=== PATIENT | male | born 1990 | race Two or more races ===

== ENCOUNTER 2020-12-04 10:19 | Emergency (ER) | payer SELFPAY ==
[~2020-12-04] VITALS: Ht 172.7 cm; Wt 70.0 kg
[2020-12-04 10:44] LABS: BASO # 0.1 x10^3/uL (0.0-0.2); BASO % 1 % (0-3); EOS % 0 % (0-3); HEMATOCRIT 45.6 % (39.0-53.0); HEMOGLOBIN 15.3 g/dL (13.0-17.5); LYMPH # 3.7 x10^3/uL (1.0-4.8); LYMPH % 37 % (24-48); MEAN CORPUSCULAR HEMOGLOBIN 30 pg (25-35); MEAN CORPUSCULAR HGB CONC 34 g/dL (31-37); MEAN CORPUSCULAR VOLUME 90 fL (79-100); MONO % 10 % (0-9); NEUT # 5.3 x10^3/uL (1.8-7.7); NEUT % 53 % (31-73); PLATELET COUNT 401 x10^3/uL (140-400); RED BLOOD COUNT 5.06 x10^6/uL (4.30-5.70)
[2020-12-04] MEDS: IV NORMAL SALINE 1000ML BAG 1,000 ML IV SCH (10:52)
[2020-12-04] MEDS: ASPIRIN 325 MG TABLET PO ONE (10:52)
[2020-12-04] MEDS: MORPHINE SULFATE 4 MG/ML VIAL. IV/SQ PRN (10:53)
[2020-12-04] MEDS: NITROGLYCERIN SUBLINGUAL 0.4 MG BOTTLE OF 25. SL PRN (10:53)
--- NOTE | 2020-12-04 11:00 | RAD ---
EXAMINATION: XR CHEST 1V CLINICAL HISTORY: Chest pain EXAM DATE/TIME: 12/04/2020 10:32 AM COMPARISON: None FINDINGS: Lines, Tubes, and Devices: None. Cardiomediastinal Silhouette: Within normal limits. Lungs and Pleura: No evidence of focal airspace consolidation or pleural effusion. Bilateral old calc ified granulomas. Pulmonary vasculature unremarkable. Bones and Soft Tissues: No acute osseous abnormality. IMPRESSION: No evidence of acute cardiopulmonary abnormality. Electronically signed by: Inderjit Hare DO (12/04/2020 10:58 AM) [id number]
[2020-12-04 11:10] LABS: ALBUMIN/GLOBULIN RATIO 1.1 (1.0-1.7); CALCIUM 8.8 mg/dL (8.5-10.1); CREATININE 1.3 mg/dL (0.7-1.3); MAGNESIUM 2.3 mg/dL (1.8-2.4); TOTAL BILIRUBIN 0.8 mg/dL (0.2-1.0); TOTAL PROTEIN 7.8 g/dL (6.4-8.2)
[2020-12-04 11:13] LABS: POTASSIUM 2.9 mmol/L (3.5-5.1)
--- NOTE | 2020-12-04 12:00 | EKG ---
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
[2020-12-04] MEDS: POTASSIUM CHLORIDE 20 MEQ TABLET.ER. PO ONE ×2 (12:06→13:00)
[2020-12-04] MEDS: IV NORMAL SALINE 1000ML BAG 1,000 ML IV ONE (12:07)
[2020-12-04 12:40] LABS: BILIRUBIN,URINE NEGATIVE (NEG); CLARITY,URINE CLEAR; COLOR,URINE YELLOW; NITRITE,URINE NEGATIVE (NEG); PROTEIN,URINE 30 mg/dL (NEG-TRACE)
[2020-12-04 12:51] LABS: AMPHETAMINE/METHAMPHETAMINE POS (NEG); BARBITURATES NEG (NEG); BENZODIAZEPINES NEG (NEG); CANNABINOIDS NEG (NEG); COCAINE NEG (NEG); METHADONE NEG (NEG); OPIATES POS (NEG); PHENCYCLIDINE NEG (NEG)
[2020-12-04 12:52] LABS: HYALINE CASTS, URINE MODERATE /HPF
[2020-12-04 12:53] LABS: BACTERIA,URINE 0 /HPF (0-FEW); RBC,URINE OCC /HPF (0-2); SPERM,URINE PRESENT /HPF
[2020-12-04 15:42] VITALS: BP 135/91
--- NOTE | 2020-12-04 16:09 | PHYS DOC ---
Past Medical History Past Medical History: Hypertension Past Surgical History: No Surgical History Smoking Status: Never Smoker Alcohol Use: None General Adult EDM: Chief Complaint: CHEST PAIN HPI: HPI: Patient is a 30 year old male with history of hypertension who presents to the ED today complaining of a 10 out of 10 left-sided chest pain described as sharp and constant, symptoms began at 9 AM while he was resting at home. Patient denies anything specifically exacerbating or relieving the pain. He is very anxious thrashing himself around the bed. History hard to obtain at this point. Patient is Kazakh-speaking, initial interpretation was provided by one of the hospital employees from radiology department. That around the language line was used Review of Systems: Review of Systems: Constitutional: Denies fever or chills. [] Eyes: Denies change in visual acuity. [] HENT: Denies nasal congestion or sore throat. [] Respiratory: Denies cough or shortness of breath. [] Cardiovascular: Reports left-sided chest pain GI: Denies abdominal pain, nausea, vomiting, bloody stools or diarrhea. [] : Denies dysuria. [] Musculoskeletal: Denies back pain or joint pain. [] Integument: Denies rash. [] Neurologic: Denies headache, focal weakness or sensory changes. [] Psychiatric: Denies depression or anxiety. [] Heart Score: C/O Chest Pain: Yes HEART Score for Chest Pain: HEART Score for Chest Pain Response (Comments) Value History Slighlty/Non-Suspicious 0 ECG Normal 0 Age < 45 0 Risk Factors 1 or 2 Risk Factors 1 Troponin < Normal Limit 0 Total 1 Risk Factors: Risk Factors: DM, Current or recent (<one month) smoker, HTN, HLP, family history of CAD, obesity. Risk Scores: Score 0 - 3: 2.5% MACE over next 6 weeks - Discharge Home Score 4 - 6: 20.3% MACE over next 6 weeks - Admit for Clinical Observation Score 7 - 10: 72.7% MACE over next 6 weeks - Early Invasive Strategies Current Medications: Current Medications Medications (Trade) Dose Ordered Sig/Bernie Start Time Stop Time Status Last Admin Dose Admin Aspirin (Snow Aspirin) 325 mg 1X ONCE 12/04/20 10:30 12/04/20 10:34 DC 12/04/20 10:52 325 MG Lorazepam (Ativan Inj) 1 mg 1X ONCE 12/04/20 13:00 12/04/20 13:02 DC 12/04/20 13:42 1 MG Morphine Sulfate (Morphine Sulfate) 4 mg PRN Q15MIN PRN 12/04/20 10:30 12/05/20 10:29 12/04/20 10:53 4 MG Nitroglycerin (Nitrostat) 0.4 mg PRN Q5MIN PRN 12/04/20 10:30 12/05/20 10:29 12/04/20 10:53 0.4 MG Potassium Chloride (Klor-Con) 40 meq 1X ONCE 12/04/20 13:00 12/04/20 13:02 DC Sodium Chloride 1,000 ml @ 1,000 mls/hr 1X ONCE 12/04/20 12:00 12/04/20 12:59 DC 12/04/20 12:07 1,000 MLS/HR Allergies: Allergies: Allergies Coded Allergies Type Severity Reaction Last Updated Verified No Known Drug Allergies 12/04/20 No Physical Exam: PE: Constitutional: Well developed, well nourished, no acute distress, non-toxic appearance. [] HENT: Normocephalic, atraumatic, bilateral external ears normal, oropharynx moist, no oral exudates, nose normal. [] Eyes: PERRLA, EOMI, conjunctiva normal, no discharge. [] Neck: Normal range of motion, no tenderness, supple, no stridor. [] Cardiovascular:Heart rate regular rhythm, no murmur [] Lungs & Thorax: Bilateral breath sounds clear to auscultation [] Abdomen: Bowel sounds normal, soft, no tenderness, no masses, no pulsatile masses. [] Skin: Warm, dry, no erythema, no rash. [] Back: No tenderness, no CVA tenderness. [] Extremities: No tenderness, no cyanosis, no clubbing, ROM intact, no edema. [] Neurologic: Alert and oriented X 3, normal motor function, normal sensory function, no focal deficits noted. [] Psychologic: Anxious, thrashing around the bed Current Patient Data: Labs: Laboratory Tests Test 12/04/20 10:23 12/04/20 12:10 12/04/20 14:42 White Blood Count 10.0 x10^3/uL (4.0-11.0) Red Blood Count 5.06 x10^6/uL (4.30-5.70) Hemoglobin 15.3 g/dL (13.0-17.5) Hematocrit 45.6 % (39.0-53.0) Mean Corpuscular Volume 90 fL (79-100) Mean Corpuscular Hemoglobin 30 pg (25-35) Mean Corpuscular Hemoglobin Concent 34 g/dL (31-37) Red Cell Distribution Width 14.0 % (11.5-14.5) Platelet Count 401 x10^3/uL (140-400) H Neutrophils (%) (Auto) 53 % (31-73) Lymphocytes (%) (Auto) 37 % (24-48) Monocytes (%) (Auto) 10 % (0-9) H Eosinophils (%) (Auto) 0 % (0-3) Basophils (%) (Auto) 1 % (0-3) Neutrophils # (Auto) 5.3 x10^3/uL (1.8-7.7) Lymphocytes # (Auto) 3.7 x10^3/uL (1.0-4.8) Monocytes # (Auto) 1.0 x10^3/uL (0.0-1.1) Eosinophils # (Auto) 0.0 x10^3/uL (0.0-0.7) Basophils # (Auto) 0.1 x10^3/uL (0.0-0.2) D-Dimer (Sada) 0.31 ug/mlFEU (0.00-0.50) Sodium Level 135 mmol/L (136-145) L Potassium Level 2.9 mmol/L (3.5-5.1) *L Chloride Level 98 mmol/L (98-107) Carbon Dioxide Level 15 mmol/L (21-32) L Anion Gap 22 (6-14) H Blood Urea Nitrogen 7 mg/dL (8-26) L Creatinine 1.3 mg/dL (0.7-1.3) Estimated GFR (Cockcroft-Gault) 64.0 BUN/Creatinine Ratio 5 (6-20) L Glucose Level 215 mg/dL (70-99) H Calcium Level 8.8 mg/dL (8.5-10.1) Magnesium Level 2.3 mg/dL (1.8-2.4) Total Bilirubin 0.8 mg/dL (0.2-1.0) Aspartate Amino Transferase (AST) 34 U/L (15-37) Alanine Aminotransferase (ALT) 48 U/L (16-63) Alkaline Phosphatase 80 U/L (46-116) Troponin I Quantitative < 0.017 ng/mL (0.000-0.055) 0.025 ng/mL (0.000-0.055) HO-Fpn-H-Type Natriuretic Peptide 33 pg/mL (0-124) Total Protein 7.8 g/dL (6.4-8.2) Albumin 4.0 g/dL (3.4-5.0) Albumin/Globulin Ratio 1.1 (1.0-1.7) Thyroid Stimulating Hormone (TSH) 5.279 uIU/mL (0.358-3.74) H Ethyl Alcohol Level < 10 mg/dL (0-10) Urine Collection Type Unknown Urine Color Yellow Urine Clarity Clear Urine pH 7.0 (<5.0-8.0) Urine Specific [place] 1.015 (1.000-1.030) Urine Protein 30 mg/dL (NEG-TRACE) Urine Glucose (UA) 250 mg/dL (NEG) Urine Ketones (Stick) 15 mg/dL (NEG) Urine Blood Negative (NEG) Urine Nitrite Negative (NEG) Urine Bilirubin Negative (NEG) Urine Urobilinogen Dipstick 1.0 mg/dL (0.2 mg/dL) Urine Leukocyte Esterase Negative (NEG) Urine RBC Occ /HPF (0-2) Urine WBC 1-4 /HPF (0-4) Urine Bacteria 0 /HPF (0-FEW) Urine Hyaline Casts Moderate /HPF Urine Mucus Marked /LPF Urine Sperm Present /HPF Urine Opiates Screen Pos (NEG) Urine Methadone Screen Neg (NEG) Urine Barbiturates Neg (NEG) Urine Phencyclidine Screen Neg (NEG) Urine Amphetamine/Methamphetamine Pos (NEG) Urine Benzodiazepines Screen Neg (NEG) Urine Cocaine Screen Neg (NEG) Urine Cannabinoids Screen Neg (NEG) Urine Ethyl Alcohol Pos (NEG) Laboratory Tests 12/04/20 10:23 Laboratory Tests 12/04/20 10:23 Vital Signs: Vital Signs Date Time Temp Pulse Resp B/P (MAP) Pulse Ox O2 Delivery O2 Flow Rate FiO2 12/04/20 12:22 114 141/89 (106) 90 Room Air 12/04/20 10:53 20 12/04/20 10:20 98.2 98.2 EKG: EK interpreted by Dr. Mcwilliams sinus tachycardia heart rate 142 no STEMI Repeat EKG 1221 Interpreted by Oj Quinn Sinus tachycardia heart rate 115 no STEMI Radiology/Procedures: Radiology/Procedures: []PROCEDURE: PORTABLE CHEST 1V EXAMINATION: XR CHEST 1V CLINICAL HISTORY: Chest pain EXAM DATE/TIME: 12/04/2020 10:32 AM COMPARISON: None FINDINGS: Lines, Tubes, and Devices: None. Cardiomediastinal Silhouette: Within normal limits. Lungs and Pleura: No evidence of focal airspace consolidation or pleural effusion. Bilateral old calcified granulomas. Pulmonary vasculature unremar kable. Bones and Soft Tissues: No acute osseous abnormality. IMPRESSION: No evidence of acute cardiopulmonary abnormality. Electronically signed by: Inderjit Henson DO (12/04/2020 10:58 AM) [id number] DICTATED and SIGNED BY: INDERJIT HENSON DO DATE: 12/04/20 [id number] Course & Med Decision Making: Course & Med Decision Making Pertinent Labs and Imaging studies reviewed. (See chart for details) This is a 30-year-old male patient presenting to the ED today complaining of chest pain that began at 9 AM. Patient arrives in the ED anxious, thrashing around in the bed. EKGs were negative for STEMI, noted for tachycardia heart rates in the 130s to 140s on arrival. Blood pressure 159/89, O2 sats 98% on room air. Chest x-ray is negative CBC with no acute findings, CMP with glucose of 215 anion gap is 22, patient denies any history of diabetes. Potassium 2.9, patient was given oral potassium replacement. Patient was given 2 L of IV fluids in the ED. D-dimer is normal. Urine drug screen positive for methamphetamine use as well as alcohol. Patient finally calmed down. Heart rate came back as low as 95. Results were discussed with patient. He was discharged to home. Encourage him to get helpful alcohol and drug use. Encourage him to follow-up with his own PCP for blood pressure and blood sugar management. Dragon Disclaimer: Dragon Disclaimer: This electronic medical record was generated, in whole or in part, using a voice recognition dictation system. Departure Departure Impression: Primary Impression: Chest pain Qualified Codes: R07.9 - Chest pain, unspecified Additional Impressions: Methamphetamine use Alcoholism Hypokalemia Hyperglycemia Disposition: 01 DC HOME SELF CARE/HOMELESS Condition: STABLE Referrals: NO PCP (PCP) REYNA SCHNEIDER MD please follow up in 1-2 weeks Patient Instructions: Alcohol Problems, Chest Pain (Nonspecific), [id number], Methamphetamine Abuse, Complications Additional Instructions: You were evaluated in the emergency room for chest pain and noted to be using methamphetamine and alcohol. Please consider getting help for this. Your cardiac work-up is negative. Follow-up with the provided cookie padder. PROSPER SINCLAIR APRN Dec 04, 2020 16:09
== END 2020-12-04 16:35 | disposition home or self-care (01) ==
LOC: ER 10:19
DX: R07.89 Other chest pain (principal); R73.9 Hyperglycemia, unspecified; F15.90 Other stimulant use, unspecified, uncomplicated; E87.6 Hypokalemia; F10.10 Alcohol abuse, uncomplicated; I10 Essential (primary) hypertension
CPT/HCPCS: 36415; 71045; 80053; 80307; 81001; 83735; 83880; 84443; 84484; 85025; 85379; 93005; 96361; 96374; 96375; 99285; G0480; J2060; J2270; J7030

== ENCOUNTER 2021-01-08 09:30 | Emergency (ER) | payer SELFPAY ==
[~2021-01-08] VITALS: Ht 167.6 cm; Wt 80.9 kg
--- NOTE | 2021-01-08 09:52 | ED.ADGEN ---
Past Medical History Past Medical History: Hypertension Past Surgical History: No Surgical History Smoking Status: Never Smoker Alcohol Use: None General Adult EDM: Chief Complaint: ABDOMINAL PAIN HPI: HPI: Patient is a 30-year-old male who arrives ambulatory to the emergency department complaining of right lower quadrant abdominal pain. Patient reports his pain is been ongoing now for 2 weeks and radiates back to his right flank. Patient states the pain throbs and is intermittent in nature. Patient states despite having this pain he has not had any fevers. He further denies any dysuria. Additionally he denies any injury. He is awake, alert and nontoxic-appearing. Of note the patient is [place]-speaking and his ability to communicate in Kiswahili is very limited. Review of Systems: Review of Systems: Constitutional: Denies fever or chills. [] Eyes: Denies change in visual acuity. [] HENT: Denies nasal congestion or sore throat. [] Respiratory: Denies cough or shortness of breath. [] Cardiovascular: Denies chest pain or edema. [] GI: Reports abdominal pain. Denies nausea, vomiting, bloody stools or diarrhea. [] : Reports right flank pain. Denies dysuria. [] Musculoskeletal: Denies back pain or joint pain. [] Integument: Denies rash. [] Neurologic: Denies headache, focal weakness or sensory changes. [] Endocrine: Denies polyuria or polydipsia. [] Lymphatic: Denies swollen glands. [] Psychiatric: Denies depression or anxiety. [] Allergies: Allergies: Allergies Coded Allergies Type Severity Reaction Last Updated Verified No Known Drug Allergies 12/04/20 No Physical Exam: PE: Constitutional: Well developed, well nourished, no acute distress, non-toxic appearance. [] HENT: Normocephalic, atraumatic, bilateral external ears normal, oropharynx moist, no oral exudates, nose normal. [] Eyes: PERRLA, EOMI, conjunctiva normal, no discharge. [] Neck: Normal range of motion, no tenderness, supple, no stridor. [] Cardiovascular:Heart rate regular rhythm, no murmur [] Lungs & Thorax: Bilateral breath sounds clear to auscultation [] Abdomen: Tenderness palpation of the right lower quadrant. Bowel sounds normal, soft, no masses, no pulsatile masses. [] Skin: Warm, dry, no erythema, no rash. [] Back: Mild right-sided CVA tenderness. [] Extremities: No tenderness, no cyanosis, no clubbing, ROM intact, no edema. [] Neurologic: Alert and oriented X 3, normal motor function, normal sensory function, no focal deficits noted. [] Psychologic: Affect normal, judgement normal, mood normal. [] Current Patient Data: Labs: Laboratory Tests Test 01/08/21 10:00 Urine Collection Type Unknown Urine Color Yellow Urine Clarity Clear Urine pH 6.0 (<5.0-8.0) Urine Specific [place] 1.015 (1.000-1.030) Urine Protein Negative mg/dL (NEG-TRACE) Urine Glucose (UA) Negative mg/dL (NEG) Urine Ketones (Stick) Negative mg/dL (NEG) Urine Blood Negative (NEG) Urine Nitrite Negative (NEG) Urine Bilirubin Negative (NEG) Urine Urobilinogen Dipstick 0.2 mg/dL (0.2 mg/dL) Urine Leukocyte Esterase Negative (NEG) Urine RBC 0 /HPF (0-2) Urine WBC Rare /HPF (0-4) Urine Bacteria 0 /HPF (0-FEW) Vital Signs: Vital Signs Date Time Temp Pulse Resp B/P (MAP) Pulse Ox O2 Delivery O2 Flow Rate FiO2 01/08/21 11:20 94 22 132/78 (96) 99 Room Air 01/08/21 09:42 98.4 98.4 EKG: EKG: [] Heart Score: C/O Chest Pain: No Risk Factors: Risk Factors: DM, Current or recent (<one month) smoker, HTN, HLP, family history of CAD, obesity. 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 PHYSICIAN: SHARAN KOEHLER DO REASON: right flank/lower quad pain PROCEDURE: CT ABDOMEN PELVIS WO CONTRAST INDICATION: Reason: right flank/lower quad pain / Spl. Instructions: / History: . COMPARISON: None. TECHNIQUE: Axial CT images obtained through the abdomen and pelvis without contrast. One or more of the following individualized dose reduction techniques were utilized for this examination: 1. Automated exposure control; 2. Adjustment of the mA and/or kV according to patient size; 3. Use of iterative reconstruction technique. FINDINGS: Abdominal aorta is not aneurysmal. No intrahepatic bile duct dilation. No peripancreatic fluid collection. Spleen unremarkable. Urinary bladder is partially distended with some prominence of wall. No hydronephrosis. No periappendiceal inflammatory changes. No dilated loops of bowel to suggest obstruction. Sclerosis at sacroiliac joints which could be degenerative in nature. There is some degenerative changes of the spine as well. IMPRESSION: * No evidence of bowel obstruction or appendicitis. * No hydronephrosis. * Prominence of the wall the urinary bladder. Would correlate with symptoms to ensure this is not secondary to cystitis. Electronically signed by: Sury Farmer MD (01/08/2021 10:46 AM) DESKTOP- [id number] DICTATED and SIGNED BY: SURY FARMER MD DATE: 01/08/21 [id number] 0 Course & Med Decision Making: Course & Med Decision Making Pertinent Labs and Imaging studies reviewed. (See chart for details) [] Dragon Disclaimer: Ruth Disclaimer: This electronic medical record was generated, in whole or in part, using a voice recognition dictation system. Departure Departure Impression: Primary Impression: Abdominal muscle strain Disposition: 01 HOME / SELF CARE / HOMELESS Condition: STABLE Referrals: NO PCP (PCP) Patient Instructions: Abdominal Pain, Muscle Strain Scripts Cyclobenzaprine Hcl (CYCLOBENZAPRINE HCL) 10 Mg Tablet 1 TAB PO TID for 7 Days, #21 TAB Prov: SHARAN KOEHLER DO 01/08/21 Tramadol Hcl (ULTRAM) 50 Mg Tablet 50 MG PO Q6HRS PRN for PAIN for 3 Days, #12 TAB 0 Refills Prov: SHARAN KOEHLER DO 01/08/21 SHARAN KOEHLER DO January 08, 2021 09:52
[2021-01-08 10:18] LABS: BILIRUBIN,URINE NEGATIVE (NEG); CLARITY,URINE CLEAR; COLOR,URINE YELLOW; NITRITE,URINE NEGATIVE (NEG); PROTEIN,URINE NEGATIVE (NEG-TRACE); UROBILINOGEN,URINE 0.2 mg/dL (0.2 mg/dL)
[2021-01-08 10:37] LABS: BACTERIA,URINE 0 /HPF (0-FEW); RBC,URINE 0 /HPF (0-2); WBC,URINE RARE /HPF (0-4)
--- NOTE | 2021-01-08 10:48 | RAD ---
INDICATION: Reason: right flank/lower quad pain / Spl. Instructions: / History: . COMPARISON: None. TECHNIQUE: Axial CT images obtained through the abdomen and pelvis without contrast. One or more of the following individualized dose reduction techniques were utilized for this examinat ion: 1. Automated exposure control; 2. Adjustment of the mA and/or kV according to patient size; 3 . Use of iterative reconstruction technique. FINDINGS: Abdominal aorta is not aneurysmal. No intrahepatic bile duct dilation. No peripancreatic fluid collection. Spleen unremarkable. Urinary bladder is partially distended with some prominence of wall. No hydronephrosis. No periappendiceal inflammatory changes. No dilated loops of bowel to suggest obstruction. Sclerosis at sacroiliac joints which could be degenerative in nature. There is some degenerative rico ges of the spine as well. IMPRESSION: * No evidence of bowel obstruction or appendicitis. * No hydronephrosis. * Prominence of the wall the urinary bladder. Would correlate with symptoms to ensure this is not se condary to cystitis. Electronically signed by: Afshin Farmer MD (01/08/2021 10:46 AM) [id number]
[2021-01-08] MEDS ORDERED: TRAM-48 PO (11:04)
[2021-01-08] MEDS ORDERED: CYCL10TA2 PO (11:04)
[2021-01-08 11:20] VITALS: BP 132/78
== END 2021-01-08 11:26 | disposition home or self-care (01) ==
LOC: ER 09:30
DX: S39.011A Strain of muscle, fascia and tendon of abdomen, initial encounter (principal); I10 Essential (primary) hypertension; X58.XXXA Exposure to other specified factors, initial encounter; Y93.89 Activity, other specified; Y92.89 Other specified places as the place of occurrence of the external cause; Y99.8 Other external cause status
CPT/HCPCS: 74176; 81001; 99284-25